=== PATIENT | male | born 1950 | race Caucasian/White ===

== ENCOUNTER → 2018-12-28 | Day surgery (SDC) | payer MEDICARE, BC ==
--- NOTE | 2018-12-28 11:28 | RADIOLOGY REPORT (SQ) ---
EXAM DESCRIPTION: CT RT UPPER EXTREMITY WITH COMPLETED DATE/TIME: 12/28/2018 10:42 am REASON FOR STUDY: PRIMARY OSTEOARTHRITIS RIGHT SHOULDER M19.011 PRIMARY OSTEOARTHRITIS, RIGHT SHOUL MARY ANNE COMPARISON: None. TECHNIQUE: Axial imaging performed through the rightshoulder with reformatted oblique coronal and ob lique sagittal imaging windowed for bone and soft tissues. All CT scanners at this facility use dose modulation, iterative reconstruction, and/or weight based d osing when appropriate to reduce radiation dose to as low as reasonably achievable (ALARA). [facility]: Dose Right [facility]: CareDose [facility]: Dose Right [facility]: Teradose 4D [facility]: [employer] RADIATION DOSE: CT Rad equipment meets quality standard of care and radiation dose reduction techniq ues were employed. CTDIvol: 11.2 mGy. DLP: 306 mGy-cm. mGy. LIMITATIONS: None. FINDINGS: There is contrast in the subacromial bursa. Contrast within the supraspinatus and infrasp inatus tendons pattern consistent with partial width full-thickness tears. Moderate AC and glenohumeral joint arthropathy. Visualize lungs are clear. IMPRESSION: Partial width full-thickness tears of the supraspinatus and infraspinatus. TECHNICAL DOCUMENTATION: JOB ID: [id number] Quality ID # [id number]: Final reports with documentation of one or more dose reduction techniques (e.g., Au tomated exposure control, adjustment of the mA and/or kV according to patient size, use of iterative reconstruction technique) 2010 [employer]- All Rights Reserved Reading location - IP/workstation name: [email or web address]
--- NOTE | 2018-12-28 12:55 | RADIOLOGY REPORT (SQ) ---
EXAM DESCRIPTION: ARTHRO SHOULDER; FLUORO/NEEDLE PLACEMENT COMPLETED DATE/TIME: 12/28/2018 10:35 am REASON FOR STUDY: PRIMARY OSTEOARTHRITIS RIGHT SHOULDER M19.011 PRIMARY OSTEOARTHRITIS, RIGHT SHOUL MARY ANNE COMPARISON: None. FLUOROSCOPY TIME: 21 seconds. 2 images saved to PACS. LIMITATIONS: None. PROCEDURE: Procedure, risks, benefits and alternatives explained to patient who then gave written co nsent. The right shoulder was marked and a time out was called for correct procedure verification. P osterior entry site marked using fluoroscopic guidance. Shoulder prepped and draped using sterile te chnique. Local anesthesia achieved using 1% lidocaine injection. Hypodermic needle introduced into the joint space under direct fluoroscopic visualization. Non-ionic contrast instilled to confirm intr a-articular position. Dilute gadolinium solution then injected. Needle removed and entry site covere d with sterile bandage. No immediate complications noted. TECHNIQUE: Digital images acquired during fluoroscopy and stored on PACS. Patient immediately take n to the MR suite for additional imaging. INJECTION LOCATION: Posterior right shoulder. CONTRAST TYPE AND AMOUNT: 10 mL Omniscan/Saline mixture. IMPRESSION: SUCCESSFUL NEEDLE PLACEMENT AND INJECTION FOR RIGHT SHOULDER MR ARTHROGRAM USING POSTERI OR APPROACH. COMMENT: Quality ID [id number]: Final reports for procedures using fluoroscopy that document radiation exp osure indices, or exposure time and number of fluorographic images (if radiation exposure indices are not available) TECHNICAL DOCUMENTATION: JOB ID: [id number] [employer]- All Rights Reserved Reading location - IP/workstation name: [email or web address]
== END ==
LOC: RAD 09:12 → EDSTATUS 10:00
PROVIDERS: ATTEND Orthopaedic Surgery
DX: M19.011 Primary osteoarthritis, right shoulder (principal)
CPT/HCPCS: 73040; 77002